=== PATIENT | male | born 1965 ===

== ENCOUNTER 2021-07-18 09:00 | Day surgery (SDC) | payer SELFPAY ==
[~2021-07-18] VITALS: Ht 177.8 cm; Wt 117.8 kg
[2021-07-18] MEDS ORDERED: SYNTHROID0.05 MG/TA PO (12:12)
[2021-07-18] MEDS ORDERED: ATARAX 25MG25 MG/TAB PO (12:12)
[2021-07-18] MEDS ORDERED: LASIX 80MG TABL80 MG PO (12:12)
[2021-07-18] MEDS ORDERED: NEXIUM 24HR20 M1 PO (12:13)
[2021-07-18] MEDS ORDERED: ALDACTONE 100M100 MG PO (12:13)
[2021-07-18] MEDS ORDERED: NATURAL IRON65 MG PO (12:14)
[2021-07-18] MEDS ORDERED: MULTI VITAMINS1 TAB PO (12:14)
[2021-07-18 12:41] VITALS: BP 165/69; PULSE 104; TEMP 97.7
[2021-07-18 14:10] VITALS: BP 141/67; PULSE 96
[2021-07-18 14:15] VITALS: BP 139/67; PULSE 95
[2021-07-18 14:30] VITALS: BP 139/84; PULSE 97
--- NOTE | 2021-07-18 14:55 | NUR ---
1410 Pt returns from endo procedure via cart and RN assist to [facility]. Pt ambulates from cart to recliner with RN assist. Monitors on and alarms set. Call light within reach. Report received from IGLESIA Noriega. Pt alert and oriented. Pt requests juice and muffin. Pt denies any pain or nausea. Pt's present in room. 1430 Pt taking food and drink well. No complications noted. 1450 Discharge instructions given to pt and . All questions answered to their satisfaction. Handed to pt are a thank you card and discharge information. 1455 Pt transferred out of the hospital via wheelchair and IGLESIA Villa assist, to private vehicle driven by pt's family.
== END 2021-07-18 14:55 | disposition home or self-care (01) ==
LOC: SDCO 09:00
DX: K70.31 Alcoholic cirrhosis of liver with ascites (principal); I85.00 Esophageal varices without bleeding; K76.6 Portal hypertension; D50.9 Iron deficiency anemia, unspecified; K29.30 Chronic superficial gastritis without bleeding; E87.6 Hypokalemia; J90 Pleural effusion, not elsewhere classified; E03.9 Hypothyroidism, unspecified; K21.9 Gastro-esophageal reflux disease without esophagitis; K22.70 Barrett's esophagus without dysplasia; R19.5 Other fecal abnormalities; K64.1 Second degree hemorrhoids; I50.9 Heart failure, unspecified; I11.0 Hypertensive heart disease with heart failure; M19.90 Unspecified osteoarthritis, unspecified site; G62.9 Polyneuropathy, unspecified; E07.9 Disorder of thyroid, unspecified; Z87.891 Personal history of nicotine dependence; Z79.899 Other long term (current) drug therapy; Z79.890 Hormone replacement therapy
CPT/HCPCS: J2704; J7120